=== PATIENT | female | born 2000 | race Two or more races ===

== ENCOUNTER → 2024-04-24 | Outpatient (CLI) | payer OTHER, SELFPAY ==
[2024-04-24 11:31] LABS: Collection Type, Urine Clean Catch
[2024-04-24 12:03] LABS: Basophils % (Auto) 1 % (0-2.5); Eosinophils # (Auto) 0.1 Thou/mm3 (0.0-0.5); Eosinophils % (Auto) 2 % (0-10); Hematocrit 41.2 % (36.0-46.0); Hemoglobin 13.8 g/dL (12.0-16.0); Immature Granulocytes % (Auto) 0 % (0-0); Immature Granulocytes Auto 0.02 Thou/mm3 (0.00-0.00); Lymphocytes # (Auto) 2.8 Thou/mm3 (1.0-4.8); Lymphocytes % (Auto) 39 % (10-50); Mean Corpuscular HGB Conc 33.5 g/dl (31.0-37.0); Mean Corpuscular Hemoglobin 30.3 pg (25.0-35.0); Mean Corpuscular Volume 90 fL (80-100); Monocytes # (Auto) 0.5 Thou/mm3 (0.0-0.8); Monocytes % (Auto) 7 % (0-12); Neutrophils # (Auto) 3.6 Thou/mm3 (1.8-7.7); Neutrophils % (Auto) 51 % (37-80); Nucleated Red Blood Cell % 0 /100 WBC (0); Platelet Count 329 Thou/mm3 (140-440); Red Blood Count 4.56 Miln/mm3 (4.00-5.20); White Blood Count 7.1 Thou/mm3 (3.6-11.0)
[2024-04-24 12:12] LABS: Glucose Estimated Average 103 mg/dL (80-131); Hemoglobin A1C 5.2 % Hgb (4.8-6.0)
[2024-04-24 12:16] LABS: Vitamin D 25 Hydroxy Total 19.7 ng/mL (7.3-40.2)
[2024-04-24 12:27] LABS: Alanine Aminotransferase 15 U/L (10-49); Albumin, Serum 4.7 gm/dL (3.5-5.0); Albumin/Globulin Ratio 1.6 (1.2-2.2); Alkaline Phosphatase 60 U/L (46-116); Anion Gap 10 (7-16); Aspartate Amino Transferase 17 U/L (0-34); BUN/Creatinine Ratio 18 Ratio (12-20); Bilirubin,Total 0.5 mg/dL (0.3-1.2); Blood Urea Nitrogen 14 mg/dL (9-23); Calcium 10.3 mg/dL (8.3-10.6); Calcium (Corrected) 10.3 mg/dL (8.5-10.1); Carbon Dioxide 25.9 mMol/L (20.0-31.0); Cardiac Risk Estimate 3.9 RATIO (3.7-5.6); Chloride 103 mMol/L (98-107); Cholesterol 223 mg/dL (132-200); Creatinine (Component) 0.8 mg/dL (0.6-1.3); Free T4 (Free Thyroxine) 1.33 ng/dL (0.89-1.76); Globulin 2.9 gm/dL (2.3-3.5); Glucose 81 mg/dL (74-106); HDL Cholesterol 57 mg/dL (40-60); LDL Cholesterol,Calculated 148 mg/dL (0-130); Osmolality,Calculated 277 (275-295); Potassium 4.4 mMol/L (3.4-5.1); Sodium 139 mMol/L (136-145); Thyroid Stimulating Hormone 2.75 uIU/mL (0.55-4.78); Total Protein 7.6 gm/dL (5.7-8.2); Triglycerides 88 mg/dL (30-150); eGFR > 60 See Note
[2024-04-24 12:32] LABS: Bacteria,Urine Rare; Bilirubin,Urine Negative (Negative); Blood,Urine Negative (Negative); Clarity,Urine Clear (Clear/Hazy); Color,Urine Lt-Yellow (Lt Yel-Yel); Culture Indicated,Urine Not Indicated; Glucose, Urine Negative (Negative); Ketones,Urine Negative (Negative); Leukocyte Esterase,Urine Negative (Negative); Nitrite,Urine Negative (Negative); Protein,Urine Negative (Neg - Trace); RBC,Urine 3 /hpf (0-3); Specific Gravity,Urine 1.028 (1.001-1.035); Squamous Epithelial Cell,Urine 6 /hpf (0-5); Urobilinogen,Urine Negative mg/dL (0.0-1.0); WBC,Urine 1 /hpf (0-5)
== END | disposition home or self-care (01) ==
PROVIDERS: PCP Registered Nurse Community Health; Referring Provider Registered Nurse Community Health; Visit Provider Registered Nurse Community Health
DX: Z00.01 Encounter for general adult medical examination with abnormal findings (principal); R53.83 Other fatigue; E78.2 Mixed hyperlipidemia; Z79.899 Other long term (current) drug therapy; Z83.3 Family history of diabetes mellitus; Z82.49 Family history of ischemic heart disease and other diseases of the circulatory system
CPT/HCPCS: 36415; 80053; 80061; 81001; 82306; 83036; 84439; 84443; 85025

== ENCOUNTER 2024-06-22 10:26 | Outpatient (AMB) | payer OTHER, SELFPAY ==
[2024-06-22 10:51] VITALS: BP 105/63; PULSE 80; RESP 18; TEMP 36.8; O2SAT 99; BMI 24.0
--- NOTE | 2024-06-22 10:51 | GYNCLNT_ITS ---
Vital Signs 06/22/24 10:51 Height 1.57 m Height Method Stated Weight 59.647 kg Weight Measurement Method Standing Scale BMI 24.0 BP 105/63 Blood Pressure Source Automatic Cuff Blood Pressure Location Left Upper Arm Position Sitting Respiration 18 Pulse 80 Pulse Source Monitor Temp 98.2 F Temp Source Oral Pulse Oximetry (%) 99 Oxygen Delivery Method Room Air Allergies/Home Meds Allergies & Medications Allergies No Known Allergies Allergy (Verified 06/22/24 10:52) Medication Reconciliation No Known Home Medications 06/22/24 [History Confirmed 06/22/24] Intake Visit Data Collection New Patient or Established: Established Patient (seen at [facility] within 3 years) Reason for Visit:: Nexplanon removal and replacement Seen by Clinical Staff ONLY (RN/MA): No [employer] Consultant Required: No Do You Feel Safe at Home: Yes Authorities Contacted: N/A PCP or OBGYN visit in last 3 months: Yes Date of Last PCP or OBGYN visit: 04/24/24 Hx Now: No Are you currently on any form of Control: Yes Pain Present Currently: No Pain Scale Used: Chase-Llanos/Numerical Pain scale:: 0 Smoking Status Smoking Status: Never smoker 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 1. Little interest or pleasure in doing things: not at all 2. Feeling down, depressed, or hopeless: not at all Total score: 0 PHQ-9 3. Trouble falling or staying asleep, or sleeping too much: Not at all 4. Feeling tired or having little energy: Not at all 5. Poor appetite or overeating: Not at all 6. Feeling bad about yourself - or that you are a failure or have let yourself or your family down: Not at all 7. Trouble concentrating on things, such as reading the newspaper or watching television: Not at all 8. Moving or speaking so slowly that other people could have noticed? - Or the opposite - being so fidgety or restless that you have been moving around a lot more than usual: not at all 9. Thoughts that you would be better off or of hurting yourself in some way: Not at all Total score: 0 If you checked off any problems, how difficult have these problems made it for you to do your work, take care of things at home, or get along with other people?: not difficult at all Source: Developed by Drs. Evaristo Lewis, Mary Duran, Mandeep Dominique and colleagues, with an educational kiersten from [employer]. Depression screen completed yes Social History Living Situation History Marital Status: Single Lives With: Family Housing: House Tobacco History Smoking Status: Never smoker Second Hand Smoke Exposure: No Alcohol History Alcohol Intake: Never Domestic Abuse History Do You Feel Safe at Home: Yes Past Medical History Past Medical History Have you ever been diagnosed with any of the following: History of Present Illness HPI Narrative Anayeli Perez presents for removal and replacement of her Nexplanon contraceptive implant. The patient reports no current problems or questions regarding her control method. She expresses a desire to continue with Nexplanon despite experiencing irregular bleeding during the first year of use. The patient's current Nexplanon was placed by [facility] in 2021 and has as of May 2024. Despite the expiration, it is noted that the implant is likely still effective for up to 4 years, providing continued contraceptive protection. The patient is able to locate and show the implant's position when asked. Anayeli reports overall satisfaction with the Nexplanon method and wishes to proceed with replacement. She acknowledges the initial challenges with irregular bleeding but has decided to continue with this form of contraception, suggesting improved tolerance or management of side effects over time. Surgical History - Nexplanon implant placement in 2021 Medications and Supplements - Nexplanon - Placed in 2021 by [facility] - since May - First year had irregular bleeding - Still likely effective for up to 4 years Social History - Control: Patient uses Nexplanon implant for contraception, which was placed in 2021 at [facility] Review of Systems Genitourinary: Positive for irregular bleeding in the past. Review of Systems Review of Systems Systems Reviewed: All systems reviewed, normal except as documented Exam General Limitations: no limitations General Appearance: alert, in no apparent distress, comfortable, cooperative, healthy appearing, well developed and well groomed Head Head exam: atraumatic, normocephalic and normal inspection Neck Neck exam: Present normal inspection, full ROM and trachea midline Chest Chest inspection: Present normal inspection and symmetric chest wall rise Abdominal Abdominal exam: Present soft and normal bowel sounds Psych Psychiatric exam: Present normal affect and normal mood Skin Skin exam: Present warm, dry, intact and normal color Assessment & Plan Diagnosis / Problem List (1) Implantable subdermal contraceptive surveillance: Status: Acute Plan Anayeli Perez, female patient, presenting for Nexplanon removal and replacement. Current Nexplanon in May 2024. Contraception management Assessment: Patient has been using Nexplanon for contraception since 2021, placed by [email or web address]. The current implant in May 2024 but is likely still effective for up to 4 years post-insertion. Patient reports initial difficulties with irregular bleeding during the first year of use but desires to continue with this method of contraception. Plan: - Order new Nexplanon implant (expedited) - Schedule patient for removal of Nexplanon and insertion of new implant once it arrives - Inform patient we will call to schedule the procedure as soon as the new implant is available - Backup appointment scheduled in two weeks if expedited order is delayed - Document today's conversation to facilitate expedited order Office Procedures OB Clinic LOC & Office Proc's Nursing/Assessment Patient Status: Established Patient OB Clinic Nursing Assessment: BP Monitoring, Medication Reconciliation, Update PMH in EMR and Vital Signs OB Clinic Coordination of Care: Consent,records obtained, informed consent, Education Simp Pt/Fam, Lab and Imaging orders and Staff clarify orders Established Patient Charge Established Patient Point Assignment: 90 Established Patient Point Charge: EP Level 3 (80-115)
== END 2024-06-22 10:58 | disposition home or self-care (01) ==
LOC: HODSOBC 10:26
PROVIDERS: PCP Registered Nurse Community Health; Referring Provider Registered Nurse Community Health; Supervising Provider Obstetrics & Gynecology; Visit Provider Obstetrics & Gynecology
DX: Z30.46 Encounter for surveillance of implantable subdermal contraceptive (principal)
CPT/HCPCS: 99213; G0463

== ENCOUNTER 2024-07-06 09:15 | Outpatient (AMB) | payer OTHER, SELFPAY ==
[2024-07-06 09:38] VITALS: BP 104/62; PULSE 92; RESP 18; TEMP 36.2; O2SAT 99; BMI 24.0
--- NOTE | 2024-07-06 09:38 | AMB.GYNCLNOT ---
Vital Signs 07/06/24 09:38 Height 1.57 m Height Method Stated Weight 59.137 kg Weight Measurement Method Standing Scale BMI 24.0 BP 104/62 Blood Pressure Source Automatic Cuff Blood Pressure Location Left Upper Arm Position Sitting Respiration 18 Pulse 92 Pulse Source Monitor Temp 97.2 F Temp Source Oral Pulse Oximetry (%) 99 Oxygen Delivery Method Room Air Allergies/Home Meds Allergies & Medications Allergies No Known Allergies Allergy (Verified 07/06/24 09:39) Medication Reconciliation No Known Home Medications 06/22/24 [History Confirmed 07/06/24] Intake Visit Data Collection New Patient or Established: Established Patient (seen at [facility] within 3 years) Reason for Visit:: Nexplanon removal and replacement Seen by Clinical Staff ONLY (RN/MA): No 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 Do You Feel Safe at Home: Yes Authorities Contacted: N/A PCP or OBGYN visit in last 3 months: Yes Date of Last PCP or OBGYN visit: 06/22/24 Hx Now: Yes Are you currently on any form of Control: Yes Pain Present Currently: No Pain Scale Used: Chase-Llanos/Numerical Pain scale:: 0 Smoking Status Smoking Status: Never smoker 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 1. Little interest or pleasure in doing things: not at all 2. Feeling down, depressed, or hopeless: not at all Total score: 0 PHQ-9 3. Trouble falling or staying asleep, or sleeping too much: Not at all 4. Feeling tired or having little energy: Not at all 5. Poor appetite or overeating: Not at all 6. Feeling bad about yourself - or that you are a failure or have let yourself or your family down: Not at all 7. Trouble concentrating on things, such as reading the newspaper or watching television: Not at all 8. Moving or speaking so slowly that other people could have noticed? - Or the opposite - being so fidgety or restless that you have been moving around a lot more than usual: not at all 9. Thoughts that you would be better off or of hurting yourself in some way: Not at all Total score: 0 If you checked off any problems, how difficult have these problems made it for you to do your work, take care of things at home, or get along with other people?: not difficult at all Source: Developed by Drs. Evaristo Lewis, Mary Duran, Mandeep Dominique and colleagues, with an educational kiersten from [employer]. Depression screen completed yes Social History Living Situation History Marital Status: Lives With: Family Housing: House Tobacco History Smoking Status: Never smoker Second Hand Smoke Exposure: No Alcohol History Alcohol Intake: Never Domestic Abuse History Do You Feel Safe at Home: Yes Past Medical History Past Medical History Have you ever been diagnosed with any of the following: History of Present Illness HPI Narrative Anayeli Perez presents for removal and replacement of her Nexplanon contraceptive implant. The patient reports no specific complaints or concerns related to her current Nexplanon. The patient is scheduled for a routine Nexplanon replacement procedure. She denies any side effects or issues with her current implant. The patient expresses readiness for the procedure and has no specific questions or concerns. She reports no plans or activities following the procedure that would interfere with post-procedure care instructions. During the procedure, the patient experiences some light-headedness. She is provided with water and instructed to rest until the symptoms subside. No other immediate complications or concerns are reported by the patient. Medications and Supplements - Nexplanon - Being replaced with a new Nexplanon implant during this visit. Review of Systems General: Positive for light-headedness. Exam General General Appearance: alert, in no apparent distress and healthy appearing Head Head exam: atraumatic Neck Neck exam: Present normal inspection and trachea midline Chest Chest inspection: Present normal inspection and symmetric chest wall rise External exam: Present normal external exam; Absent tenderness Neuro Neurological exam: Present oriented X3 Psych Psychiatric exam: Present normal affect and normal mood Assessment & Plan Diagnosis / Problem List (1) Implantable subdermal contraceptive surveillance: Status: Acute Plan Anayeli Perez presented for Nexplanon removal and replacement. Contraception management Assessment: Patient presented for scheduled Nexplanon removal and replacement. The existing Nexplanon implant was due for replacement. No contraindications or concerns were identified during the visit. Plan: - Removed existing Nexplanon implant - Inserted new Nexplanon implant through the same incision site - Provided post-procedure instructions: - Avoid sleeping on the arm or exercising for 24 hours - Remove pressure dressing after 2-3 hours, or sooner if numbness or tingling in fingers occurs - Informed patient that new implant is immediately effective; no backup contraception needed - Provided patient with implant information card, including lot number and removal date (3 years from insertion) Office Procedures OB Clinic LOC & Office Proc's Nursing/Assessment Patient Status: Established Patient OB Clinic Nursing Assessment: BP Monitoring, Medication Reconciliation, Update PMH in EMR and Vital Signs OB Clinic Coordination of Care: Consent,records obtained, informed consent, Education Simp Pt/Fam, Lab and Imaging orders and Staff clarify orders Established Patient Charge Established Patient Point Assignment: 90 Established Patient Point Charge: EP Level 3 (80-115) In Clinic Procedures Insertion of Control other NOT IUD's: Yes Removal of Control Implant other NOT IUD: Yes MARRIAGE PERFORMER: BC insert/removal Procedure Notes Consent obtained: yes-verbal and yes-written Post-op diagnosis procedure note: Same IUD type inserted: Other (describe) IUD Lot and Exp: Lot#: [id number] Expiration date: 08/28 Procedure Notes:: Informed consent was obtained. The patient was placed in a supine position with the non-dominant arm flexed at the elbow and externally rotated to expose the inner upper arm. The planned insertion site was located approximately 8?10 cm proximal to the medial epicondyle of the humerus on the inner aspect of the arm, avoiding neurovascular structures. After marking the insertion site, the area was cleansed with antiseptic solution and a local anesthetic (1% lidocaine) was infiltrated subdermally. The Nexplanon applicator was then inserted into the subdermal space at the marked site, using sterile technique. The implant was deployed and palpated along its entire length to confirm proper placement. The site was cleansed and dressed with a sterile pressure bandage. Post-Procedure Counseling: The patient was counseled on expected side effects, including irregular bleeding or amenorrhea. She was advised to monitor the insertion site for signs of infection (redness, swelling, discharge) or migration. Back-up contraception is not required if the implant was inserted within the first 5 days of the menstrual cycle; otherwise, back-up protection for 7 days was advised. She was informed that the implant is effective for up to 3 years. No complications noted. Implant placement confirmed by palpation. Patient tolerated the procedure well.
== END 2024-07-06 10:14 | disposition home or self-care (01) ==
LOC: HODSOBC 09:15
PROVIDERS: PCP Obstetrics & Gynecology; Referring Provider Obstetrics & Gynecology; Supervising Provider Obstetrics & Gynecology; Visit Provider Obstetrics & Gynecology
DX: Z30.46 Encounter for surveillance of implantable subdermal contraceptive (principal)
CPT/HCPCS: 11983; 99213; J3490; J7301; G0463